=== PATIENT | female | born 1940 | race Caucasian/White ===

== ENCOUNTER 2018-01-26 05:29 | Day surgery (SDC) | payer MEDICARE, OTHER ==
[2018-01-24 10:58] LABS: BASOPHILS % (AUTO) 0.4 % (0-1); EOSINOPHILS % (AUTO) 0.8 % (0-6); LYMPHOCYTES # (AUTO) 0.9 X10'3 (1.1-4.8); LYMPHOCYTES % (AUTO) 42.5 % (21-51); MEAN CORPUSCULAR HEMOGLOBIN 31.1 PG (27.0-31.0); MEAN CORPUSCULAR HGB CONC 34.7 % (33.0-36.5); MEAN CORPUSCULAR VOLUME 89.4 FL (78-98); MONOCYTES # (AUTO) 0.3 X10'3 (0-0.9); MONOCYTES % (AUTO) 12.8 % (2-12); NEUTROPHILS # (AUTO) 0.9 X10'3 (1.8-7.7); NEUTROPHILS % (AUTO) 43.5 % (42-75); PRE OP HEMATOCRIT 38.4 % (35.0-45.0); PRE OP HEMOGLOBIN 13.3 g/dL (12.0-16.0); RED BLOOD COUNT 4.29 X10'6 (4.20-5.60); RED CELL DISTRIBUTION WIDTH 14.2 % (11.5-14.5)
[2018-01-24 11:02] LABS: PRE OP PLATELET COUNT 89 X10'3 (140-440)
[2018-01-24 11:13] LABS: ALBUMIN 4.1 G/DL (3.4-5.0); ALBUMIN/GLOBULIN RATIO 1.2 (1.1-1.5); ALKALINE PHOSPHATASE 87 IU/L (46-116); BLOOD UREA NITROGEN 25 MG/DL (7-18); BUN/CREATININE RATIO 22.9 (6.6-38.0); CALCIUM 9.3 MG/DL (8.5-10.1); CHLORIDE 106 MMOL/L (99-107); CREATININE 1.09 MG/DL (0.40-0.90); PRE OP ANION GAP 8 (8-16); PRE OP AST 54 U/L (10-37); PRE OP BILIRUB, TOTAL 0.5 MG/DL (0.0-1.0); PRE OP GLUCOSE 90 MG/DL (70-104); PRE OP POTASSIUM 4.2 MMOL/L (3.4-5.1); PRE OP SODIUM 140 MMOL/L (135-145); TOTAL CARBON DIOXIDE 25.9 MMOL/L (24-32); TOTAL PROTEIN 7.5 G/DL (6.4-8.2); eGFR 49 ML/MIN
[2018-01-24 11:14] LABS: PRE OP ALT 115 U/L (30-65)
[2018-01-24 11:35] LABS: PLATELET ESTIMATE DECREASED; TOTAL CELLS COUNTED 100
[2018-01-26] VITALS (8 sets, daily range): BP systolic 105–147; BP diastolic 50–86
[~2018-01-26] VITALS: Ht 160 cm; Wt 69.2 kg
[~2018-01-26 05:29] MED LIST: ACET-812 PO; AMLO2.5T2 PO; ASPI81TA52 PO; LEVO88TA39 PO; LOSA50TA37 PO; OMEP20TA5 PO; PRAM0.5T3 PO; ringers solution, lacted 1,000 ML IV SCH
[2018-01-26] MEDS ORDERED: famotidine 20mg tablet PO ONE (05:30)
[2018-01-26] MEDS ORDERED: ceFOXitin 2 GM ADDvantage bag 100 ML IV ONE (05:30)
[2018-01-26] MEDS ORDERED: LIDOcaine 1% (10mg/ml) 2ml vial ONE (05:52)
[2018-01-26] MEDS ORDERED: BUPIVAcaine/PF 2.5mg/ml (0.25%) 10ml vial ONE (07:11)
[2018-01-26] MEDS ORDERED: ceFAZolin 1000mg inj ONE (07:11)
[2018-01-26] MEDS ORDERED: fentaNYL/PF 50MCG/1 ML 2ML syringe ONE (08:21)
[2018-01-26] MEDS ORDERED: LIDOcaine 2% (20mg/ml) 5ml vial ONE (08:23)
[2018-01-26] MEDS ORDERED: propofol inj 20 ML IV ONE (08:23)
[2018-01-26] MEDS ORDERED: midazolam 2 mg/2 ml injection ONE (08:23)
[2018-01-26] MEDS ORDERED: glycopyrrolate 0.2mg/ml inj ONE (08:47)
[2018-01-26] MEDS ORDERED: sevoflurane 250ml liquid IH ONE (08:47)
[2018-01-26] MEDS ORDERED: ringers solution, lacted 1,000 ML IV SCH (08:49)
[2018-01-26] MEDS ORDERED: ondansetron/PF 4mg/2ml inj IV PRN (08:50)
[2018-01-26] MEDS ORDERED: proCHLORperazine 10 MG/2 ml inj IV PRN (08:50)
[2018-01-26] MEDS ORDERED: morphine 4 MG/ML inj SYRINge IV PRN ×2 (08:50)
[2018-01-26] MEDS ORDERED: meperidine/PF 25mg/ml syringe IV PRN ×3 (08:50)
[2018-01-26] MEDS ORDERED: dexamethasone sod phosphate 4mg/ml inj. ONE (09:25)
[2018-01-26] MEDS ORDERED: ondansetron/PF 4mg/2ml inj ONE (09:26)
[2018-01-26] MEDS ORDERED: ketorolac trometh. 30mg/ml inj. ONE (09:26)
[2018-01-26] MEDS ORDERED: neostigmine methylsulfate 1 MG/ML 10ml vial ONE (09:31)
== END 2018-01-26 10:45 | disposition home or self-care (01) ==
LOC: PAS 05:29
PROVIDERS: ATTEND Surgery
DX: K80.10 Calculus of gallbladder with chronic cholecystitis without obstruction (principal); I11.9 Hypertensive heart disease without heart failure; E03.9 Hypothyroidism, unspecified; K21.9 Gastro-esophageal reflux disease without esophagitis; G47.33 Obstructive sleep apnea (adult) (pediatric); D46.Z Other myelodysplastic syndromes; M19.90 Unspecified osteoarthritis, unspecified site; I25.810 Atherosclerosis of coronary artery bypass graft(s) without angina pectoris; Z79.891 Long term (current) use of opiate analgesic; Z88.0 Allergy status to penicillin; Z95.5 Presence of coronary angioplasty implant and graft; Z90.710 Acquired absence of both cervix and uterus; Z86.14 Personal history of Methicillin resistant Staphylococcus aureus infection; Z90.89 Acquired absence of other organs; Z79.82 Long term (current) use of aspirin; Z79.1 Long term (current) use of non-steroidal anti-inflammatories (NSAID); Z88.1 Allergy status to other antibiotic agents; Z72.89 Other problems related to lifestyle; Z86.79 Personal history of other diseases of the circulatory system; Z95.1 Presence of aortocoronary bypass graft; Z88.8 Allergy status to other drugs, medicaments and biological substances; Z79.899 Other long term (current) drug therapy; Z98.890 Other specified postprocedural states
CPT/HCPCS: 36415; 47562; 80053; 85025; 93005; J0694; J1100; J1885; J2001; J2250; J2405; J2704; J2710; J3010; J3490; J7120; 88304; A7000; J0690

== ENCOUNTER 2018-04-01 09:29 | Outpatient (CLI) | payer MEDICARE, OTHER ==
[~2018-04-01] VITALS: Ht 172.7 cm; Wt 62.6 kg
[~2018-04-01 09:29] MED LIST changes: +LOSA50TA21 PO; -LOSA50TA37 PO; -ringers solution, lacted 1,000 ML IV SCH
[2018-04-01 10:53] LABS: CLARITY,URINE CLEAR (Clear); COLOR,URINE YELLOW (Yellow); GLUCOSE, URINE NEGATIVE (Neg); KETONES,URINE TRACE mg/dl (Neg); LEUKOCYTE ESTERASE ,URINE NEGATIVE (Neg); NITRITES, URINE NEGATIVE (Neg); OCCULT BLOOD,URINE NEGATIVE (Neg); PROTEIN,URINE NEGATIVE (Neg); UROBILINOGEN,URINE 0.2 E.U/dL (0.2-1.0)
[2018-04-01 10:55] LABS: PRE OP PROTIME 10.3 SECONDS (9.0-12.0); UA COLLECTION TYPE CLN CATCH MIDSTREAM
[2018-04-01 11:06] LABS: BASOPHILS % (AUTO) 0.9 % (0-1); EOSINOPHILS % (AUTO) 0.8 % (0-6); LYMPHOCYTES # (AUTO) 0.8 X10'3 (1.1-4.8); LYMPHOCYTES % (AUTO) 41.3 % (21-51); MEAN CORPUSCULAR HEMOGLOBIN 31.3 PG (27.0-31.0); MEAN CORPUSCULAR HGB CONC 35.1 % (33.0-36.5); MEAN CORPUSCULAR VOLUME 89.2 FL (78-98); MEAN PLATELET VOLUME 10.9 FL (7.4-10.4); MONOCYTES # (AUTO) 0.2 X10'3 (0-0.9); MONOCYTES % (AUTO) 10.5 % (2-12); NEUTROPHILS # (AUTO) 0.9 X10'3 (1.8-7.7); NEUTROPHILS % (AUTO) 46.5 % (42-75); PRE OP HEMATOCRIT 38.3 % (35.0-45.0); PRE OP HEMOGLOBIN 13.4 g/dL (12.0-16.0); RED BLOOD COUNT 4.29 X10'6 (4.20-5.60)
[2018-04-01 11:08] LABS: ALBUMIN 4.6 G/DL (3.4-5.0); ALBUMIN/GLOBULIN RATIO 1.4 (1.1-1.5); ALKALINE PHOSPHATASE 95 IU/L (46-116); BLOOD UREA NITROGEN 21 MG/DL (7-18); BUN/CREATININE RATIO 22.6 (6.6-38.0); CALCIUM 9.5 MG/DL (8.5-10.1); CHLORIDE 103 MMOL/L (99-107); CREATININE 0.93 MG/DL (0.40-0.90); PRE OP ALT 58 U/L (30-65); PRE OP ANION GAP 9 (8-16); PRE OP AST 36 U/L (10-37); PRE OP BILIRUB, TOTAL 0.6 MG/DL (0.0-1.0); PRE OP GLUCOSE 94 MG/DL (70-104); PRE OP POTASSIUM 4.2 MMOL/L (3.4-5.1); PRE OP SODIUM 139 MMOL/L (135-145); TOTAL PROTEIN 7.9 G/DL (6.4-8.2); eGFR 59 ML/MIN
[2018-04-01 11:14] LABS: PRE OP PLATELET COUNT 91 X10'3 (140-440)
[2018-04-01 11:38] LABS: BASOPHILS % (MANUAL) 1 % (0-1); EOSINOPHILS % (MANUAL) 1 % (0-6); LYMPHOCYTES % (MANUAL) 39 % (21-51); MONOCYTES % (MANUAL) 14 % (2-12); NEUTROPHILS % (MANUAL) 45 % (42-75); TOTAL CELLS COUNTED 100
[2018-04-01 11:39] LABS: PLATELET ESTIMATE DECREASED
[2018-04-05] MEDS ORDERED: BIOT10004 PO (13:40)
[2018-04-05] MEDS ORDERED: MAGN250T11 PO (13:40)
[2018-04-05] MEDS ORDERED: CHOL100046 PO (13:40)
== END 2018-04-01 23:59 | disposition home or self-care (01) ==
LOC: PRE-OP 09:29 → EDSTATUS 04-06 07:30
PROVIDERS: ATTEND Surgery
DX: Z01.818 Encounter for other preprocedural examination (principal); J98.4 Other disorders of lung; R94.31 Abnormal electrocardiogram [ECG] [EKG]; I44.0 Atrioventricular block, first degree; I10 Essential (primary) hypertension; E03.9 Hypothyroidism, unspecified; M19.90 Unspecified osteoarthritis, unspecified site; Z95.1 Presence of aortocoronary bypass graft; Z79.82 Long term (current) use of aspirin; Z90.710 Acquired absence of both cervix and uterus
CPT/HCPCS: 36415; 71046; 80053; 81003; 84443; 85025; 85610; 85730; 86885; 86900; 86901; 87070; 93005

== ENCOUNTER 2019-03-27 13:59 | Day surgery (SDC) | payer MEDICARE, OTHER ==
[2019-03-22 10:01] LABS: LYMPHOCYTES # (AUTO) 1.1 X10'3 (1.1-4.8); MEAN CORPUSCULAR HEMOGLOBIN 29.5 PG (27.0-31.0); MEAN PLATELET VOLUME 9.5 FL (7.4-10.4); MONOCYTES # (AUTO) 0.3 X10'3 (0-0.9); NEUTROPHILS # (AUTO) 1.5 X10'3 (1.8-7.7); PLATELET COUNT 115 X10'3 (140-440)
[2019-03-22 10:03] LABS: BASOPHILS % (AUTO) 0.8 % (0-1); EOSINOPHILS % (AUTO) 1.5 % (0-6); HEMATOCRIT 41.8 % (35.0-45.0); LYMPHOCYTES % (AUTO) 37.5 % (21-51); MEAN CORPUSCULAR HGB CONC 33.4 g/dL (33.0-36.5); MEAN CORPUSCULAR VOLUME 88.4 FL (78-98); MONOCYTES % (AUTO) 9.9 % (2-12); NEUTROPHILS % (AUTO) 50.3 % (42-75); RED BLOOD COUNT 4.73 X10'6 (4.20-5.60); RED CELL DISTRIBUTION WIDTH 14.7 % (11.5-14.5)
[2019-03-22 10:15] LABS: ALBUMIN 4.7 G/DL (3.4-5.0); ANION GAP 9 (8-16); BLOOD UREA NITROGEN 31 MG/DL (7-18); BUN/CREATININE RATIO 31.6 (6.6-38.0); CALCIUM 9.9 MG/DL (8.5-10.1); CHLORIDE 104 MMOL/L (99-107); CREATININE 0.98 MG/DL (0.40-0.90); GLUCOSE 97 MG/DL (70-104); POTASSIUM 4.3 MMOL/L (3.5-5.1); SODIUM 140 MMOL/L (135-145); TOTAL CARBON DIOXIDE 27.3 MMOL/L (24-32); eGFR 55 ML/MIN
[2019-03-22 10:18] LABS: PARTIAL THROMBOPLASTIN TIME 29 SECONDS (22-32)
[2019-03-22 10:27] LABS: PLATELET ESTIMATE DECREASED; TOTAL CELLS COUNTED 100
[2019-03-27] VITALS (7 sets, daily range): BP systolic 112–152; BP diastolic 56–105
[~2019-03-27] VITALS: Ht 157.5 cm; Wt 64.8 kg
[~2019-03-27 13:59] MED LIST changes: -ACET-812 PO; +BIOT10004 PO; +CHOL100046 PO; -LOSA50TA21 PO; +LOSA50TA64 PO; +MAGN250T11 PO; +OMEP20CA11 PO; -OMEP20TA5 PO
[2019-03-27] MEDS ORDERED: normal saline 1,000 ML IV SCH (14:35)
[2019-03-27] MEDS ORDERED: diphenhydrAMINE 25mg capsule PO PRN (14:35)
[2019-03-27] MEDS ORDERED: LORazepam 0.5 MG tablet PO PRN (14:35)
[2019-03-27] MEDS ORDERED: CYAN100019 PO (15:05)
[2019-03-27] MEDS ORDERED: EVOL140P PO (15:05)
[2019-03-27] MEDS ORDERED: NITR0.4T SL (15:05)
[2019-03-27] MEDS ORDERED: LOSA100T57 PO (15:05)
[2019-03-27] MEDS ORDERED: PROP1DRO7 OP (15:05)
[2019-03-27] MEDS ORDERED: BIOT25008 PO (15:05)
[2019-03-27] MEDS ORDERED: CHOL2000 PO (15:05)
[2019-03-27] MEDS ORDERED: PRAM0.5T3 PO (15:05)
[2019-03-27] MEDS ORDERED: MAGN400C PO (15:05)
[2019-03-27] MEDS ORDERED: AMLO5TAB PO (15:05)
[2019-03-27] MEDS ORDERED: ACET-812 PO (15:07)
[2019-03-27] MEDS ORDERED: fentaNYL/PF 50MCG/1 ML 2ML syringe ONE (16:39)
[2019-03-27] MEDS ORDERED: iohexol 350MG/ML 100ml bottle IV ONE (16:40)
[2019-03-27] MEDS ORDERED: LIDOcaine 1% (10mg/ml)w/preservative injection 20ml MDV ONE (16:40)
[2019-03-27] MEDS ORDERED: midazolam 2 mg/2 ml injection ONE (16:40)
[2019-03-27] MEDS ORDERED: iohexol 350 MG/ML 50ML vial IV ONE (17:38)
[2019-03-27] MEDS ORDERED: HYDROcodone/acetaminophen 10/325mg tab PO PRN (18:20)
[2019-03-27] MEDS ORDERED: OXAZEpam 15mg capsule PO PRN (18:20)
[2019-03-27] MEDS ORDERED: ondansetron/PF 4mg/2ml inj IV PRN (18:20)
[2019-03-27] MEDS ORDERED: acetaminophen 325mg tablet PO PRN (18:20)
[2019-03-27] MEDS ORDERED: HYDROcodone/acetaminophen 5mg/325mg tablet PO PRN (18:20)
== END 2019-03-27 19:56 | disposition home or self-care (01) ==
LOC: SSTAY O 13:59
PROVIDERS: ATTEND Internal Medicine Interventional Cardiology
DX: I25.10 Atherosclerotic heart disease of native coronary artery without angina pectoris (principal); I35.0 Nonrheumatic aortic (valve) stenosis; G47.33 Obstructive sleep apnea (adult) (pediatric); E03.9 Hypothyroidism, unspecified; I10 Essential (primary) hypertension; E78.5 Hyperlipidemia, unspecified; Z79.899 Other long term (current) drug therapy; Z95.1 Presence of aortocoronary bypass graft; Z79.01 Long term (current) use of anticoagulants; Z79.82 Long term (current) use of aspirin; Z88.0 Allergy status to penicillin; Z88.8 Allergy status to other drugs, medicaments and biological substances
CPT/HCPCS: 36415; 80048; 85025; 85610; 85730; 93455; 93567; 99152; 99153; C1769; J1644; J2001; J2250; J3010; J7030; Q0163; Q9967; 93005; A4620; A6258

== ENCOUNTER 2019-05-02 14:00 | Inpatient (IN) | payer MEDICARE, OTHER ==
[~2019-05-02] VITALS: Ht 160 cm; Wt 67.0 kg
[~2019-05-02 14:00] MED LIST changes: +ACET-812 PO; -AMLO2.5T2 PO; +AMLO5TAB PO; -BIOT10004 PO; +BIOT25008 PO; -CHOL100046 PO; +CHOL2000 PO; +CYAN100019 PO; +EVOL140P PO; +LOSA100T57 PO; -LOSA50TA64 PO; -MAGN250T11 PO; +MAGN400C PO; +NITR0.4T SL; +PROP1DRO7 OP
[2019-05-02 14:48] LABS: BASOPHILS % (AUTO) 0.6 % (0-1); EOSINOPHILS % (AUTO) 0.8 % (0-6); HEMATOCRIT 39.9 % (35.0-45.0); HEMOGLOBIN 13.4 g/dl (12.0-16.0); LYMPHOCYTES # (AUTO) 0.7 X10'3 (1.1-4.8); LYMPHOCYTES % (AUTO) 19.6 % (21-51); MEAN CORPUSCULAR HEMOGLOBIN 30.1 PG (27.0-31.0); MEAN CORPUSCULAR HGB CONC 33.7 g/dL (33.0-36.5); MEAN CORPUSCULAR VOLUME 89.3 FL (78-98); MEAN PLATELET VOLUME 10.5 FL (7.4-10.4); MONOCYTES # (AUTO) 0.4 X10'3 (0-0.9); MONOCYTES % (AUTO) 11.5 % (2-12); NEUTROPHILS # (AUTO) 2.5 X10'3 (1.8-7.7); NEUTROPHILS % (AUTO) 67.5 % (42-75); PLATELET COUNT 73 X10'3 (140-440); RED BLOOD COUNT 4.47 X10'6 (4.20-5.60); RED CELL DISTRIBUTION WIDTH 15.2 % (11.5-14.5); WHITE BLOOD COUNT 3.7 X10'3 (4.5-11.0)
[2019-05-02] MEDS ORDERED: labetalol 20mg/4ml (5mg/ml) syringe IV ONE (14:55)
[2019-05-02 15:02] LABS: ALANINE AMINOTRANSFERASE 30 U/L (12-78); ALBUMIN 4.4 G/DL (3.4-5.0); ALKALINE PHOSPHATASE 94 IU/L (46-116); ANION GAP 11 (8-16); ASPARTATE AMINO TRANSFERASE 20 U/L (10-37); BILIRUBIN,TOTAL 0.3 MG/DL (0.1-1.0); BLOOD UREA NITROGEN 25 MG/DL (7-18); BUN/CREATININE RATIO 28.1 (6.6-38.0); CHLORIDE 107 MMOL/L (99-107); CREATININE 0.89 MG/DL (0.40-0.90); GLUCOSE 116 MG/DL (70-104); POTASSIUM 4.1 MMOL/L (3.5-5.1); SODIUM 143 MMOL/L (135-145); TOTAL CARBON DIOXIDE 25.1 MMOL/L (24-32); TOTAL PROTEIN 8.6 G/DL (6.4-8.2); eGFR 62 ML/MIN
[2019-05-02 15:04] LABS: PARTIAL THROMBOPLASTIN TIME 28 SECONDS (22-32)
[2019-05-02] MEDS ORDERED: heparin 10,000 units/1 ML INJ IV ONE ×2 (15:15→15:25)
[2019-05-02] MEDS ORDERED: heparin 10,000 units/1 ML INJ IV PRN (15:15)
[2019-05-02] MEDS: heparin 25,000 UNIT/250ml bag 250 ML IV SCH (15:27)
[2019-05-02] MEDS ORDERED: nitroGLYCERIN 0.4mg SUBLingual tab SL PRN ×2 (15:35→15:55)
[2019-05-02] MEDS ORDERED: magnesium hydroxide 30ml (MOM) UD suspension PO PRN (15:55)
[2019-05-02] MEDS ORDERED: ondansetron/PF 4mg/2ml inj IV PRN (15:55)
[2019-05-02] MEDS ORDERED: morphine 2 MG/ML inj. syringe IV PRN ×2 (15:55)
[2019-05-02] MEDS ORDERED: mag hydrox/Alum hydrox/simeth 30ml oral suspension PO PRN (15:55)
[2019-05-02] MEDS ORDERED: acetaminophen 325mg tablet PO PRN (15:55)
[2019-05-02] MEDS ORDERED: HYDROcodone/acetaminophen 5mg/325mg tablet PO PRN (15:55)
[2019-05-02] MEDS ORDERED: PRAM0.5T12 PO (16:20)
[2019-05-02] MEDS ORDERED: AMLO5TAB16 PO (16:20)
[2019-05-02 17:35] VITALS: BP 151/67
--- NOTE | 2019-05-02 17:45 | NUR ---
Patient arrived from ED to room 3012C. Ambulated with stand by assist to hospital bed. Oriented to room, call light within reach. 2 RN skin check performed. All needs met at this time. Vital signs: BP 151/67, P 71, R 16, T 98.2F, O2 96 RA.
--- NOTE | 2019-05-02 17:50 | NUR ---
Paged Dr Crocker PAGER ID: [phone] MESSAGE: Re: Sara Sabillon 3012C. BRYAN Critical Troponin 2.74 Thank you Ellie Henriquez [phone]
[2019-05-02 18:00] VITALS: BP 145/65
--- NOTE | 2019-05-02 18:22 | NUR ---
Problems reprioritized. Patient report given, questions answered & plan of care reviewed with Charissa COBB.
--- NOTE | 2019-05-02 18:23 | NUR ---
[place]rientee documentation: I have reviewed and agree with all interventions, assessments performed and documented by JORDYN Argueta. [place] Medication Administration: For this medication-pass time frame, all medication were reviewed, dispensed, administered and documented per hospital policy by Ellie COBB.
--- NOTE | 2019-05-02 18:24 | NUR ---
Problems reprioritized. Patient report given, questions answered & plan of care reviewed with Charissa COBB. Patient stable at transfer of care.
[2019-05-02] MEDS ORDERED: pantoprazole 40mg Tablet.DR PO PRN (18:30)
--- NOTE | 2019-05-02 18:33 | NUR ---
Patient in room PCU 3012. I have received report from Lyndsay COBB and Ellie RN and had the opportunity to ask questions and assume patient care.
--- NOTE | 2019-05-02 18:34 | NUR ---
Patient in room PCU 3012. I have received report from Lyndsay/Ellie RNs and had the opportunity to ask questions and assume patient care.
--- NOTE | 2019-05-02 18:44 | NUR ---
Dr. Agee, [employer] [facility], called about the patient's status. He is available for any questions @ his pager: [phone]
[2019-05-02] MEDS: pramipexole 0.25mg tablet PO SCH (20:19)
[2019-05-02] MEDS: metoprolol tartrate 12.5mg (1/2 tablet) PO SCH (20:19)
[2019-05-02 22:00] VITALS: BP 108/49
[2019-05-03 03:00] VITALS: BP 151/70
[2019-05-03 03:25] LABS: BASOPHILS % (AUTO) 0.6 % (0-1); EOSINOPHILS % (AUTO) 1.4 % (0-6); HEMATOCRIT 37.2 % (35.0-45.0); HEMOGLOBIN 12.5 g/dl (12.0-16.0); LYMPHOCYTES # (AUTO) 0.8 X10'3 (1.1-4.8); LYMPHOCYTES % (AUTO) 25.1 % (21-51); MEAN CORPUSCULAR HEMOGLOBIN 29.7 PG (27.0-31.0); MEAN CORPUSCULAR HGB CONC 33.6 g/dL (33.0-36.5); MEAN CORPUSCULAR VOLUME 88.4 FL (78-98); MEAN PLATELET VOLUME 10.7 FL (7.4-10.4); MONOCYTES # (AUTO) 0.4 X10'3 (0-0.9); MONOCYTES % (AUTO) 12.4 % (2-12); NEUTROPHILS # (AUTO) 1.9 X10'3 (1.8-7.7); NEUTROPHILS % (AUTO) 60.5 % (42-75); PLATELET COUNT 75 X10'3 (140-440); RED CELL DISTRIBUTION WIDTH 15.1 % (11.5-14.5); WHITE BLOOD COUNT 3.2 X10'3 (4.5-11.0)
[2019-05-03 03:29] LABS: ALBUMIN 4.1 G/DL (3.4-5.0); ANION GAP 12 (8-16); BLOOD UREA NITROGEN 24 MG/DL (7-18); BUN/CREATININE RATIO 24.7 (6.6-38.0); CALCIUM 9.6 MG/DL (8.5-10.1); CHLORIDE 107 MMOL/L (99-107); CHOL/HDL RATIO 2.1 (0.00-4.99); CHOLESTEROL 126 MG/DL (0-200); CREATININE 0.97 MG/DL (0.40-0.90); GLUCOSE 95 MG/DL (70-104); HDL CHOLESTEROL 59 MG/DL (35-60); LDL CHOLESTEROL 56 MG/DL (50-100); POTASSIUM 4.5 MMOL/L (3.5-5.1); SODIUM 142 MMOL/L (135-145); TRIGLYCERIDES 81 MG/DL (20-135); eGFR 56 ML/MIN
--- NOTE | 2019-05-03 05:16 | NUR ---
Orientee documentation: I have reviewed and agree with all interventions, assessments performed and documented by Anil COBB.
[2019-05-03 06:00] VITALS: BP 156/68
--- NOTE | 2019-05-03 06:25 | NUR ---
Problems reprioritized. Patient report given, questions answered & plan of care reviewed with Lyndsay COBB.
--- NOTE | 2019-05-03 06:29 | NUR ---
Patient in room PCU 3012. I have received report from Charissa RN/Anil RN and had the opportunity to ask questions and assume patient care.
--- NOTE | 2019-05-03 06:32 | NUR ---
Patient in room PCU 3012. I have received report from Anshul COBB and had the opportunity to ask questions and assume patient care. Patient awake in bed with no complaints at this time. All immediate needs met.
[2019-05-03] MEDS: pramipexole 0.25mg tablet PO SCH (07:43)
[2019-05-03] MEDS: heparin 25,000 UNIT/250ml bag 250 ML IV SCH (07:49)
[2019-05-03] MEDS ORDERED: losartan 50mg tablet PO SCH (08:00)
[2019-05-03] MEDS ORDERED: levoTHYROXINE 88mcg tablet PO SCH (08:00)
[2019-05-03] MEDS ORDERED: aspirin 81mg tablet.DR PO SCH ×2 (08:00)
[2019-05-03] MEDS: metoprolol tartrate 12.5mg (1/2 tablet) PO SCH (08:00)
--- NOTE | 2019-05-03 08:02 | NUR ---
New order from Dr. Crocker: 650 mg PO tylenol Q6H PRN pain.
[2019-05-03] MEDS ORDERED: acetaminophen 325mg tablet PO PRN (08:05)
--- NOTE | 2019-05-03 08:58 | NUR ---
Per Ghislaine Correia, order heart healthy diet for patient.
--- NOTE | 2019-05-03 09:47 | NUR ---
Per Dr. Crocker, discontinue heparin gtt and ambulate patient.
[2019-05-03] MEDS ORDERED: METO25TA6 PO (10:43)
[2019-05-03 11:00] VITALS: BP 108/53
--- NOTE | 2019-05-03 12:05 | NUR ---
Patient stable for discharge per MD orders. All discharge instructions reviewed with patient and all questions answered. Patient to follow up with PCP in 1 week. Patient to follow up with Dr. Sheikh for outpatient event recorder. New prescription called into [facility]. PIV discontinued, cannula intact. Telemetry monitoring discontinued. All patient belongings packed up and sent with patient in private vehicle to home. Patient wheeled to [employer], accompanied by RN.
== END 2019-05-03 12:28 | disposition home or self-care (01) | DRG 282 ==
LOC: ER 14:01 → ED HOLD 15:54 → PCU 3S 17:23
PROVIDERS: ADMIT Internal Medicine; ATTEND Internal Medicine
DX: I21.4 Non-ST elevation (NSTEMI) myocardial infarction (principal); I44.7 Left bundle-branch block, unspecified; D69.6 Thrombocytopenia, unspecified; E03.9 Hypothyroidism, unspecified; E78.5 Hyperlipidemia, unspecified; G47.33 Obstructive sleep apnea (adult) (pediatric); I10 Essential (primary) hypertension; I25.10 Atherosclerotic heart disease of native coronary artery without angina pectoris; K21.9 Gastro-esophageal reflux disease without esophagitis; Z82.49 Family history of ischemic heart disease and other diseases of the circulatory system; Z90.710 Acquired absence of both cervix and uterus; Z88.0 Allergy status to penicillin; Z88.1 Allergy status to other antibiotic agents; Z88.8 Allergy status to other drugs, medicaments and biological substances; Z79.82 Long term (current) use of aspirin; Z79.899 Other long term (current) drug therapy; Z79.890 Hormone replacement therapy; Z95.1 Presence of aortocoronary bypass graft; Z95.2 Presence of prosthetic heart valve; Z90.49 Acquired absence of other specified parts of digestive tract
CPT/HCPCS: 36415; 71045; 80048; 80053; 80061; 83880; 84484; 85025; 85610; 85730; 93005; 93308; 96374; 96375; 99285; G0378; J1644; J3490

== ENCOUNTER 2019-05-04 16:29 | Emergency (ER) | payer MEDICARE, OTHER ==
[~2019-05-04] VITALS: Ht 160 cm; Wt 67.3 kg
[~2019-05-04 16:29] MED LIST changes: -ACET-812 PO; -AMLO5TAB PO; -BIOT25008 PO; -CHOL2000 PO; -CYAN100019 PO; -EVOL140P PO; -MAGN400C PO; +METO25TA6 PO; -NITR0.4T SL; +PRAM0.5T12 PO; -PRAM0.5T3 PO
[2019-05-04 17:37] LABS: BASOPHILS % (AUTO) 0.7 % (0-1); EOSINOPHILS % (AUTO) 1.2 % (0-6); HEMATOCRIT 36.4 % (35.0-45.0); HEMOGLOBIN 12.3 g/dl (12.0-16.0); LYMPHOCYTES # (AUTO) 0.7 X10'3 (1.1-4.8); LYMPHOCYTES % (AUTO) 23.5 % (21-51); MEAN CORPUSCULAR HEMOGLOBIN 29.9 PG (27.0-31.0); MEAN CORPUSCULAR HGB CONC 33.8 g/dL (33.0-36.5); MEAN CORPUSCULAR VOLUME 88.4 FL (78-98); MEAN PLATELET VOLUME 10.3 FL (7.4-10.4); MONOCYTES # (AUTO) 0.3 X10'3 (0-0.9); MONOCYTES % (AUTO) 9.3 % (2-12); NEUTROPHILS # (AUTO) 1.9 X10'3 (1.8-7.7); NEUTROPHILS % (AUTO) 65.3 % (42-75); PLATELET COUNT 79 X10'3 (140-440); RED BLOOD COUNT 4.12 X10'6 (4.20-5.60); RED CELL DISTRIBUTION WIDTH 15.3 % (11.5-14.5); WHITE BLOOD COUNT 2.9 X10'3 (4.5-11.0)
[2019-05-04 17:43] LABS: ALANINE AMINOTRANSFERASE 30 U/L (12-78); ALBUMIN 4.2 G/DL (3.4-5.0); ALBUMIN/GLOBULIN RATIO 1.1 (1.1-1.5); ALKALINE PHOSPHATASE 91 IU/L (46-116); ANION GAP 11 (8-16); ASPARTATE AMINO TRANSFERASE 18 U/L (10-37); BILIRUBIN,TOTAL 0.3 MG/DL (0.1-1.0); BLOOD UREA NITROGEN 29 MG/DL (7-18); BUN/CREATININE RATIO 27.9 (6.6-38.0); CHLORIDE 106 MMOL/L (99-107); CREATININE 1.04 MG/DL (0.40-0.90); GLUCOSE 104 MG/DL (70-104); POTASSIUM 4.6 MMOL/L (3.5-5.1); SODIUM 142 MMOL/L (135-145); TOTAL CARBON DIOXIDE 24.9 MMOL/L (24-32); eGFR 52 ML/MIN
[2019-05-04 17:51] LABS: MAGNESIUM 2.2 MG/DL (1.5-2.4)
[2019-05-04 18:22] LABS: TOTAL CELLS COUNTED 100
[2019-05-04 18:23] LABS: PLATELET ESTIMATE DECREASED
[2019-05-04 18:24] LABS: LARGE PLATELETS FEW
[2019-05-04 19:59] VITALS: BP 125/58
== END 2019-05-04 20:02 | disposition home or self-care (01) ==
LOC: ER 16:30
DX: R55 Syncope and collapse (principal); R07.89 Other chest pain; R11.0 Nausea; R42 Dizziness and giddiness; I44.2 Atrioventricular block, complete; I25.10 Atherosclerotic heart disease of native coronary artery without angina pectoris; I10 Essential (primary) hypertension; Z98.61 Coronary angioplasty status; Z95.1 Presence of aortocoronary bypass graft; Z98.890 Other specified postprocedural states; Z88.0 Allergy status to penicillin; Z88.1 Allergy status to other antibiotic agents; Z88.8 Allergy status to other drugs, medicaments and biological substances; Z79.82 Long term (current) use of aspirin; Z79.899 Other long term (current) drug therapy
CPT/HCPCS: 36415; 71045; 80053; 83735; 83880; 85025; 93005; 99284

== ENCOUNTER 2023-10-26 10:43 | Day surgery (SDC) | payer MEDICARE, BC ==
[2023-10-22 10:07] LABS: HEMOGLOBIN 13.8 g/dl (12.0-16.0); LYMPHOCYTES # (AUTO) 1.1 X10'3 (1.1-4.8); MONOCYTES # (AUTO) 0.5 X10'3 (0-0.9); MONOCYTES % (AUTO) 14.1 % (2-12); NEUTROPHILS # (AUTO) 2.2 X10'3 (1.8-7.7)
[2023-10-22 10:09] LABS: BASOPHILS % (AUTO) 0.9 % (0-1); EOSINOPHILS % (AUTO) 0.5 % (0-6); HEMATOCRIT 42.1 % (35.0-45.0); LYMPHOCYTES % (AUTO) 27.5 % (21-51); MEAN CORPUSCULAR HEMOGLOBIN 27.5 PG (27.0-31.0); MEAN CORPUSCULAR HGB CONC 32.7 g/dL (33.0-36.5); MEAN CORPUSCULAR VOLUME 84.1 FL (78-98); MEAN PLATELET VOLUME 10.9 FL (7.4-10.4); PLATELET COUNT 70 X10'3 (140-440); RED CELL DISTRIBUTION WIDTH 15.2 % (11.5-14.5); WHITE BLOOD COUNT 3.9 X10'3 (4.5-11.0)
[2023-10-22 10:12] LABS: APTT 26 SECONDS (22-32); PROTHROMBIN TIME 10.8 SECONDS (9.0-12.0)
[2023-10-22 10:35] LABS: ALBUMIN 4.2 G/DL (3.4-5.0); ANION GAP 12 (8-16); BLOOD UREA NITROGEN 35 MG/DL (7-18); BUN/CREATININE RATIO 24.8 (10.0-20.0); CALCIUM 9.4 MG/DL (8.5-10.1); CHLORIDE 102 MMOL/L (99-107); CHOL/HDL RATIO 5.1 (0.00-4.99); CHOLESTEROL 230 MG/DL (0-200); CREATININE 1.41 MG/DL (0.40-0.90); GLUCOSE 96 MG/DL (70-104); HDL CHOLESTEROL 45 MG/DL (35-60); LDL CHOLESTEROL 169 MG/DL (50-100); POTASSIUM 3.9 MMOL/L (3.5-5.1); SODIUM 139 MMOL/L (135-145); TOTAL CARBON DIOXIDE 25.5 MMOL/L (24-32); TRIGLYCERIDES 161 MG/DL (20-135); eGFR 36 ML/MIN
[~2023-10-26] VITALS: Ht 160 cm; Wt 71.2 kg
[2023-10-26] VITALS (8 sets, daily range): BP systolic 131–172; BP diastolic 56–76; PULSE 61–79; RESP 14–18; TEMP 97.6; O2SAT 94–98
[~2023-10-26 10:43] MED LIST changes: +LOP25T PO; -LOSA100T57 PO; +LOSA100T58 PO; -METO25TA6 PO; -OMEP20CA11 PO; +OMEP20CA15 PO
[2023-10-26] MEDS ORDERED: iohexol 350MG/ML 100ml bottle IV ONE (11:04)
[2023-10-26] MEDS ORDERED: LIDOcaine 1% 30ml preserv. free vial ONE (11:04)
[2023-10-26] MEDS ORDERED: midazolam 1 mg/ML 2ml injection ONE (11:04)
[2023-10-26] MEDS ORDERED: fentaNYL/PF 50MCG/1 ML 2ML syringe ONE (11:04)
[2023-10-26] MEDS ORDERED: ISOS60TA71 PO (11:05)
[2023-10-26] MEDS ORDERED: LEVO100T78 PO (11:05)
[2023-10-26] MEDS ORDERED: CHOL20004 PO (11:05)
[2023-10-26] MEDS ORDERED: CYAN-34 PO (11:05)
[2023-10-26] MEDS ORDERED: HYDR25TA4 PO (11:05)
[2023-10-26] MEDS ORDERED: METO-384 PO (11:05)
[2023-10-26] MEDS ORDERED: diphenhydrAMINE 25mg capsule PO PRN (11:10)
[2023-10-26] MEDS: LORazepam 0.5 MG tablet PO PRN (11:51)
[2023-10-26] MEDS: normal saline 1,000 ML IV SCH (11:51)
[2023-10-26] MEDS ORDERED: HYDROcodone/acetaminophen 5mg/325mg tablet PO PRN (13:30)
[2023-10-26] MEDS ORDERED: HYDROcodone/acetaminophen 10/325mg tab PO PRN (13:30)
== END 2023-10-26 15:30 | disposition home or self-care (01) ==
LOC: SSTAY O 10:43
PROVIDERS: ATTEND Student in an Organized Health Care Education/Training Program
DX: R07.9 Chest pain, unspecified (principal); I49.3 Ventricular premature depolarization; I25.2 Old myocardial infarction; I11.0 Hypertensive heart disease with heart failure; I50.9 Heart failure, unspecified; I25.10 Atherosclerotic heart disease of native coronary artery without angina pectoris; E78.00 Pure hypercholesterolemia, unspecified; E03.9 Hypothyroidism, unspecified; G47.33 Obstructive sleep apnea (adult) (pediatric); I73.9 Peripheral vascular disease, unspecified; Z79.82 Long term (current) use of aspirin; Z79.2 Long term (current) use of antibiotics; Z79.899 Other long term (current) drug therapy; Z95.1 Presence of aortocoronary bypass graft; Z95.4 Presence of other heart-valve replacement; Z98.890 Other specified postprocedural states; Z88.0 Allergy status to penicillin; Z88.1 Allergy status to other antibiotic agents; Z88.8 Allergy status to other drugs, medicaments and biological substances
CPT/HCPCS: 80048; 80061; 85025; 85610; 85730; 93005; 93455; 99152; J1644; J2250; J3010; J3490; J7030; Q9967; 99153; A4615; A6258; C1760